=== PATIENT | female | born 1995 | race Caucasian/White ===

== ENCOUNTER 2017-10-20 16:30 | Emergency (ER) | payer MEDICAID ==
[~2017-10-20] VITALS: Ht 160 cm; Wt 77.1 kg
[2017-10-20 16:33] VITALS: BP 127/70; Ht 160 cm; Wt 77.1 kg
== END 2017-10-20 17:54 | disposition home or self-care (01) ==
LOC: ED 16:30
DX: J02.9 Acute pharyngitis, unspecified (principal)

== ENCOUNTER 2018-07-11 15:18 | Emergency (ER) | payer MEDICAID ==
[~2018-07-11] VITALS: Ht 154.9 cm; Wt 74.4 kg
[2018-07-11 15:33] VITALS: BP 104/69; Ht 154.9 cm; Wt 74.4 kg
== END 2018-07-11 16:59 | disposition left against medical advice (07) ==
LOC: ED 15:18
DX: Z53.21 Procedure and treatment not carried out due to patient leaving prior to being seen by health care provider (principal)

== ENCOUNTER 2018-07-11 20:17 | Emergency (ER) | payer MEDICAID ==
[~2018-07-11] VITALS: Ht 149.9 cm; Wt 75.0 kg
[2018-07-11 20:45] VITALS: Ht 149.9 cm; Wt 75.0 kg
[2018-07-11 22:50] VITALS: BP 118/67
== END 2018-07-11 22:50 | disposition home or self-care (01) ==
LOC: ED 20:17
DX: G56.01 Carpal tunnel syndrome, right upper limb (principal)

== ENCOUNTER 2019-09-04 13:06 | Emergency (ER) | payer MEDICAID ==
[~2019-09-04] VITALS: Ht 154.9 cm; Wt 81.6 kg
[2019-09-04 13:18] VITALS: BP 107/54; Ht 154.9 cm; Wt 81.6 kg
== END 2019-09-04 14:22 | disposition home or self-care (01) ==
LOC: ED 13:06
DX: M26.602 Left temporomandibular joint disorder, unspecified (principal); Z98.890 Other specified postprocedural states

== ENCOUNTER 2020-01-09 09:09 | Emergency (ER) | payer MEDICAID ==
[~2020-01-09] VITALS: Ht 162.6 cm; Wt 74.4 kg
[2020-01-09 09:21] VITALS: BP 115/59; Ht 162.6 cm; Wt 74.4 kg
== END 2020-01-09 10:59 | disposition home or self-care (01) ==
LOC: ED 09:09
DX: J03.90 Acute tonsillitis, unspecified (principal); Z98.890 Other specified postprocedural states
CPT/HCPCS: J1100

== ENCOUNTER 2020-03-03 09:16 | Emergency (ER) | payer MEDICAID ==
[~2020-03-03] VITALS: Ht 154.9 cm; Wt 72.6 kg
[2020-03-03 09:24] VITALS: Ht 154.9 cm; Wt 72.6 kg
[2020-03-03 10:14] VITALS: BP 107/60
== END 2020-03-03 11:07 | disposition home or self-care (01) ==
LOC: ED 09:16
DX: S52.572A Other intraarticular fracture of lower end of left radius, initial encounter for closed fracture (principal); F17.210 Nicotine dependence, cigarettes, uncomplicated; W01.0XXA Fall on same level from slipping, tripping and stumbling without subsequent striking against object, initial encounter; Y93.89 Activity, other specified; Y92.89 Other specified places as the place of occurrence of the external cause; Y99.8 Other external cause status

== ENCOUNTER 2020-05-05 19:59 | Emergency (ER) | payer MEDICAID ==
[~2020-05-05] VITALS: Ht 160 cm; Wt 82.3 kg
[2020-05-05 20:27] VITALS: Ht 160 cm; Wt 82.3 kg
[2020-05-05 20:51] LABS: microscopic required? YES; urine erythrocyte 3+ (NEGATIVE)
[2020-05-05 20:52] LABS: BASOPHIL % 0.2 % (0-2); PLATELET COUNT 269 x10^3mcL (130-400); RED CELL DISTRIBUTION WIDTH 12.9 % (11.5-14.5)
[2020-05-05 21:07] LABS: ALBUMIN 3.8 g/dL (3.4-5.0); ALKALINE PHOSPHATASE 101 U/L (46-116); ALT/SGPT 31 U/L (14-59); AMYLASE 46 U/L (25-115); AST/SGOT 18 U/L (15-37); CARBON DIOXIDE 25.8 mmol/L (21-32); CHLORIDE SERUM 106 mmol/L (98-107); CREATININE SERUM 0.7 mg/dL (0.6-1.0); GFR1 > 60 mL/min; GLUCOSE SERUM 110 mg/dL (74-106); LIPASE 94 IU/L (73-393); POTASSIUM SERUM 3.8 mmol/L (3.5-5.1); SODIUM SERUM 141 mmol/L (136-145); TOTAL PROTEIN, SERUM 7.4 g/dL (6.4-8.2)
[2020-05-05 21:16] LABS: CALCIUM 9.1 mg/dL (8.5-10.1)
[2020-05-06 01:47] VITALS: BP 101/53
== END 2020-05-06 01:47 | disposition home or self-care (01) ==
LOC: ED 19:59
PROVIDERS: Student in an Organized Health Care Education/Training Program
DX: R10.13 Epigastric pain (principal); R11.2 Nausea with vomiting, unspecified; F17.210 Nicotine dependence, cigarettes, uncomplicated; Z98.890 Other specified postprocedural states
CPT/HCPCS: J1885; J2270; J2405; Q0092